=== PATIENT | female | born 1955 | race Caucasian/White ===

== ENCOUNTER → 2023-09-17 11:12 | Outpatient (REF) | payer MEDICARE, BC, SELFPAY | LOC: WDC 11:12 | PROVIDERS: ATTENDING PHYSICIAN Nurse Practitioner; FAMILY PHYSICIAN Internal Medicine | DX: Z12.31 Encounter for screening mammogram for malignant neoplasm of breast (principal) | CPT/HCPCS: 77063; 77067 ==

== ENCOUNTER → 2024-09-18 08:33 | Outpatient (REF) | payer MEDICARE, BC, SELFPAY | LOC: WDC 08:33 | PROVIDERS: ATTENDING PHYSICIAN Nurse Practitioner | DX: Z12.31 Encounter for screening mammogram for malignant neoplasm of breast (principal) | CPT/HCPCS: 77063; 77067 ==